=== PATIENT | male | born 1965 | race Caucasian/White ===

== ENCOUNTER 2023-11-08 14:37 | Inpatient (IN) | payer OTHER ==
[2023-11-08 16:07] VITALS: BMI 21.5
[2023-11-08] MEDS ORDERED: guaiFENesin 600 MG TABLET.ER (FP) PO PRN (18:44)
[2023-11-08] MEDS ORDERED: NALOXONE HCL (KLOXXADO) 8 MG SPRAY NS PRN (18:44)
[2023-11-08] MEDS ORDERED: LOPERAMIDE HCL 2 MG CAPSULE PO PRN (18:44)
[2023-11-08] MEDS ORDERED: NALOXONE HCL 0.4 MG/ML VIAL IM PRN (18:44)
[2023-11-08] MEDS ORDERED: MAG HYDROX/AL HYDROX/SIMETH 30 ML UNIT-DOSE CUP PO PRN (18:44)
[2023-11-08] MEDS ORDERED: BENZOCAINE/MENTHOL (CHLORASEPTIC ) LOZENGE MM PRN (18:44)
[2023-11-08] MEDS ORDERED: IBUPROFEN 400 MG TABLET (FP) PO PRN (18:44)
[2023-11-08] MEDS ORDERED: POLYETHYLENE GLYCOL (HEALTHYLAX) 3350 17 GM PACKET PO PRN (18:44)
[2023-11-08] MEDS ORDERED: BENZONATATE 200 MG CAPSULE PO PRN (18:44)
[2023-11-08] MEDS ORDERED: MAGNESIUM HYDROX 2400MG/30ML ORAL SUSPENSION 30 ML CUP PO PRN (18:44)
[2023-11-08] MEDS: MELATONIN 5 MG TABLETS PO SCH (22:25)
[2023-11-08] MEDS: THIAMINE HCL 100 MG TABLET (FP) PO SCH (22:25)
[2023-11-09] MEDS ORDERED: TUBERCULIN PPD 5 TU/0.1ML VIAL ID ONE ×2 (09:18→09:20)
[2023-11-09 10:16] LABS: CHLORIDE 107 mmol/L (98-107); POTASSIUM 4.8 mmol/L (3.5-5.1); SODIUM 142 mmol/L (136-145)
[2023-11-09 10:22] LABS: ALBUMIN 3.7 g/dl (3.4-5.0); ANION GAP 3 mmol/L (4-13); CO2 33 mmol/L (21-32); GLUCOSE,RANDOM 96 mg/dL (74-106)
[2023-11-09 10:23] LABS: CALCIUM 9.5 mg/dL (8.5-10.1)
[2023-11-09 10:25] LABS: CREATININE 0.9 mg/dL (0.55-1.3); SGOT/AST 14 U/L (15-37); SGPT/ALT 17 U/L (13-61)
[2023-11-09 10:26] LABS: TOT PROT 6.7 g/dl (6.4-8.2)
[2023-11-09 10:28] LABS: ALK PHOS 63 U/L (45-117)
[2023-11-09 10:29] LABS: EPI CELLS 4 /uL (0-25.1); HYALINE CASTS 1 /uL (0-3.1); PH,URINE 7.5 (5.0-8.0); URINE APPEARANCE CLEAR; URINE BACTERIA 22 /uL (0-1359); URINE BILIRUBIN NEGATIVE (NEGATIVE); URINE COLOR YELLOW; URINE GLUCOSE (UA) NEGATIVE (NEGATIVE); URINE KETONE NEGATIVE (NEGATIVE); URINE LEUK ESTERASE NEGATIVE (NEGATIVE); URINE NITRITE NEGATIVE (NEGATIVE); URINE PROTEIN NEGATIVE (NEGATIVE); URINE RBC 32 /uL (0-23.9); URINE UROBILINOGEN 0.2 mg/dL (0.2-1.0); URINE WBC 4 /uL (0-25.8)
[2023-11-09 10:30] LABS: HEMATOCRIT 44.5 % (35.4-49); HEMOGLOBIN 14.5 GM/dL (11.7-16.9); MCH 29.9 pg (25.7-33.7); MCHC 32.5 g/dl (32.0-35.9); MEAN PLT VOLUME 8.4 fl (7.5-11.1); PLATELET COUNT 296 10^3/uL (134-434); RBC 4.84 M/mm3 (4.00-5.60); RDW 13.4 % (11.9-15.9); WHITE BLOOD COUNT 6.5 K/mm3 (4.0-10.0)
[2023-11-09 10:40] LABS: BILIRUBIN,TOTAL 0.4 mg/dL (0.2-1)
[2023-11-09] MEDS: hydrOXYzine PAMOATE 25 MG CAPSULE (FP) PO PRN (10:49)
[2023-11-09] MEDS: PRENATAL VITAMINS W/ FOLIC ACID TABLET (FP) PO SCH (10:53)
[2023-11-09 12:21] LABS: SYPHILIS W/ RPR CONF NON-REACTIVE (NONREACTIVE)
[2023-11-09] MEDS: MELATONIN 5 MG TABLETS PO SCH (21:31)
[2023-11-09] MEDS: THIAMINE HCL 100 MG TABLET (FP) PO SCH (21:31)
[2023-11-10] MEDS: PRENATAL VITAMINS W/ FOLIC ACID TABLET (FP) PO SCH (10:43)
[2023-11-10] MEDS: ACETAMINOPHEN 325 MG TABLET (FP) PO PRN (17:34)
[2023-11-10] MEDS: MELATONIN 5 MG TABLETS PO SCH (21:11)
[2023-11-10] MEDS: THIAMINE HCL 100 MG TABLET (FP) PO SCH (21:11)
[2023-11-11] MEDS: PRENATAL VITAMINS W/ FOLIC ACID TABLET (FP) PO SCH (09:46)
[2023-11-11] MEDS: MELATONIN 5 MG TABLETS PO SCH (21:34)
[2023-11-11] MEDS: THIAMINE HCL 100 MG TABLET (FP) PO SCH (21:35)
[2023-11-12] MEDS: PRENATAL VITAMINS W/ FOLIC ACID TABLET (FP) PO SCH (10:12)
[2023-11-12] MEDS: THIAMINE HCL 100 MG TABLET (FP) PO SCH (21:19)
[2023-11-12] MEDS: MELATONIN 5 MG TABLETS PO SCH (21:19)
[2023-11-13] MEDS: PRENATAL VITAMINS W/ FOLIC ACID TABLET (FP) PO SCH (09:43)
[2023-11-13] MEDS: THIAMINE HCL 100 MG TABLET (FP) PO SCH (21:25)
[2023-11-13] MEDS: MELATONIN 5 MG TABLETS PO SCH (21:25)
[2023-11-14] MEDS: PRENATAL VITAMINS W/ FOLIC ACID TABLET (FP) PO SCH (09:57)
[2023-11-14] MEDS: MELATONIN 5 MG TABLETS PO SCH (21:24)
[2023-11-14] MEDS: THIAMINE HCL 100 MG TABLET (FP) PO SCH (21:24)
[2023-11-15] MEDS: ACETAMINOPHEN 325 MG TABLET (FP) PO PRN (06:09)
[2023-11-15] MEDS: COLLOIDAL OATMEAL 1 BAR EACH TP PRN (10:13)
[2023-11-15] MEDS: PRENATAL VITAMINS W/ FOLIC ACID TABLET (FP) PO SCH (10:13)
[2023-11-15] MEDS: GABAPENTIN 300 MG CAPSULE PO SCH ×2 (10:13→21:14)
[2023-11-15] MEDS: BACLOFEN 10 MG TABLET (FP) PO SCH ×2 (10:13→21:14)
[2023-11-15] MEDS: THIAMINE HCL 100 MG TABLET (FP) PO SCH (21:14)
[2023-11-15] MEDS: MELATONIN 5 MG TABLETS PO SCH (21:14)
[2023-11-16] MEDS: TAMSULOSIN HCL 0.4 MG CAP PO SCH (07:30)
[2023-11-16] MEDS: BACLOFEN 10 MG TABLET (FP) PO SCH ×2 (10:04→21:29)
[2023-11-16] MEDS: PRENATAL VITAMINS W/ FOLIC ACID TABLET (FP) PO SCH (10:04)
[2023-11-16] MEDS: GABAPENTIN 300 MG CAPSULE PO SCH ×2 (10:04→21:29)
[2023-11-16 11:29] LABS: MAGNESIUM 2.4 mg/dL (1.8-2.4)
[2023-11-16] MEDS: MELATONIN 5 MG TABLETS PO SCH (21:29)
[2023-11-16] MEDS: THIAMINE HCL 100 MG TABLET (FP) PO SCH (21:30)
[2023-11-16] MEDS: ACETAMINOPHEN 325 MG TABLET (FP) PO PRN (21:30)
[2023-11-17] MEDS: IBUPROFEN 600 MG TABLET (FP) PO PRN (06:35)
[2023-11-17] MEDS: hydrOXYzine PAMOATE 25 MG CAPSULE (FP) PO PRN (06:35)
[2023-11-17] MEDS: BACLOFEN 10 MG TABLET (FP) PO SCH ×2 (10:21→21:10)
[2023-11-17] MEDS: GABAPENTIN 300 MG CAPSULE PO SCH ×2 (10:21→21:11)
[2023-11-17] MEDS: TAMSULOSIN HCL 0.4 MG CAP PO SCH (10:22)
[2023-11-17] MEDS: PRENATAL VITAMINS W/ FOLIC ACID TABLET (FP) PO SCH (10:31)
[2023-11-17] MEDS: MELATONIN 5 MG TABLETS PO SCH (21:10)
[2023-11-17] MEDS: THIAMINE HCL 100 MG TABLET (FP) PO SCH (21:10)
[2023-11-17] MEDS ORDERED: GABAPENTIN 300 MG CAPSULE PO SCH (22:00)
[2023-11-18] MEDS: hydrOXYzine PAMOATE 25 MG CAPSULE (FP) PO PRN (06:30)
[2023-11-18] MEDS: GABAPENTIN 300 MG CAPSULE PO SCH ×3 (06:30→21:04)
[2023-11-18] MEDS: IBUPROFEN 600 MG TABLET (FP) PO PRN ×2 (06:30→21:04)
[2023-11-18] MEDS: TAMSULOSIN HCL 0.4 MG CAP PO SCH (09:20)
[2023-11-18] MEDS: BACLOFEN 10 MG TABLET (FP) PO SCH ×2 (10:02→21:04)
[2023-11-18] MEDS: PRENATAL VITAMINS W/ FOLIC ACID TABLET (FP) PO SCH (10:02)
[2023-11-18] MEDS: COLLOIDAL OATMEAL 1 BAR EACH TP PRN (10:02)
[2023-11-18] MEDS: ACETAMINOPHEN 325 MG TABLET (FP) PO PRN (10:03)
[2023-11-18] MEDS: THIAMINE HCL 100 MG TABLET (FP) PO SCH (21:04)
[2023-11-18] MEDS: MELATONIN 5 MG TABLETS PO SCH (21:04)
[2023-11-19] MEDS: GABAPENTIN 300 MG CAPSULE PO SCH ×3 (06:07→21:29)
[2023-11-19] MEDS: ACETAMINOPHEN 325 MG TABLET (FP) PO PRN (06:08)
[2023-11-19] MEDS: PRENATAL VITAMINS W/ FOLIC ACID TABLET (FP) PO SCH (09:22)
[2023-11-19] MEDS: TAMSULOSIN HCL 0.4 MG CAP PO SCH (09:22)
[2023-11-19] MEDS: BACLOFEN 10 MG TABLET (FP) PO SCH ×2 (10:10→21:27)
[2023-11-19] MEDS: MELATONIN 5 MG TABLETS PO SCH (21:27)
[2023-11-19] MEDS: THIAMINE HCL 100 MG TABLET (FP) PO SCH (21:27)
[2023-11-20] MEDS: GABAPENTIN 300 MG CAPSULE PO SCH ×3 (06:16→21:11)
[2023-11-20] MEDS: TAMSULOSIN HCL 0.4 MG CAP PO SCH (08:18)
[2023-11-20] MEDS: PRENATAL VITAMINS W/ FOLIC ACID TABLET (FP) PO SCH (10:29)
[2023-11-20] MEDS: BACLOFEN 10 MG TABLET (FP) PO SCH ×2 (10:29→21:11)
[2023-11-20] MEDS: ACETAMINOPHEN 325 MG TABLET (FP) PO PRN (10:29)
[2023-11-20] MEDS: THIAMINE HCL 100 MG TABLET (FP) PO SCH (21:11)
[2023-11-20] MEDS: MELATONIN 5 MG TABLETS PO SCH (21:11)
[2023-11-20] MEDS: IBUPROFEN 600 MG TABLET (FP) PO PRN (21:11)
[2023-11-21] MEDS: GABAPENTIN 300 MG CAPSULE PO SCH ×3 (06:14→21:16)
[2023-11-21] MEDS: ACETAMINOPHEN 325 MG TABLET (FP) PO PRN (06:15)
[2023-11-21] MEDS: TAMSULOSIN HCL 0.4 MG CAP PO SCH (07:39)
[2023-11-21] MEDS: BACLOFEN 10 MG TABLET (FP) PO SCH ×3 (10:23→21:15)
[2023-11-21] MEDS: PRENATAL VITAMINS W/ FOLIC ACID TABLET (FP) PO SCH (10:23)
[2023-11-21] MEDS: IBUPROFEN 600 MG TABLET (FP) PO PRN ×2 (10:24→21:16)
[2023-11-21] MEDS ORDERED: GABAPENTIN 300 MG CAPSULE PO SCH (13:29)
[2023-11-21] MEDS: THIAMINE HCL 100 MG TABLET (FP) PO SCH (21:15)
[2023-11-21] MEDS: MELATONIN 5 MG TABLETS PO SCH (21:16)
[2023-11-22] MEDS: GABAPENTIN 300 MG CAPSULE PO SCH ×3 (06:02→21:17)
[2023-11-22] MEDS: BACLOFEN 10 MG TABLET (FP) PO SCH ×3 (06:02→21:17)
[2023-11-22] MEDS: TAMSULOSIN HCL 0.4 MG CAP PO SCH (07:49)
[2023-11-22] MEDS: PRENATAL VITAMINS W/ FOLIC ACID TABLET (FP) PO SCH (10:41)
[2023-11-22] MEDS: IBUPROFEN 600 MG TABLET (FP) PO PRN ×2 (10:42→21:19)
[2023-11-22] MEDS: THIAMINE HCL 100 MG TABLET (FP) PO SCH (21:17)
[2023-11-22] MEDS: MELATONIN 5 MG TABLETS PO SCH (21:17)
[2023-11-23] MEDS: GABAPENTIN 300 MG CAPSULE PO SCH ×3 (06:05→21:22)
[2023-11-23] MEDS: BACLOFEN 10 MG TABLET (FP) PO SCH ×3 (06:05→21:22)
[2023-11-23] MEDS: TAMSULOSIN HCL 0.4 MG CAP PO SCH (07:53)
[2023-11-23] MEDS: PRENATAL VITAMINS W/ FOLIC ACID TABLET (FP) PO SCH (10:24)
[2023-11-23] MEDS: hydrOXYzine PAMOATE 25 MG CAPSULE (FP) PO PRN ×2 (10:24→21:24)
[2023-11-23] MEDS: THIAMINE HCL 100 MG TABLET (FP) PO SCH (21:21)
[2023-11-23] MEDS: MELATONIN 5 MG TABLETS PO SCH (21:21)
[2023-11-23] MEDS ORDERED: SUVOREXANT 10 MG TABLET PO PRN (22:00)
[2023-11-24] MEDS: BACLOFEN 10 MG TABLET (FP) PO SCH ×3 (06:09→21:22)
[2023-11-24] MEDS: GABAPENTIN 300 MG CAPSULE PO SCH ×3 (06:09→21:22)
[2023-11-24] MEDS: PRENATAL VITAMINS W/ FOLIC ACID TABLET (FP) PO SCH (10:26)
[2023-11-24] MEDS: TAMSULOSIN HCL 0.4 MG CAP PO SCH (10:26)
[2023-11-24] MEDS: IBUPROFEN 600 MG TABLET (FP) PO PRN (10:33)
[2023-11-24] MEDS: MELATONIN 5 MG TABLETS PO SCH (21:22)
[2023-11-24] MEDS: THIAMINE HCL 100 MG TABLET (FP) PO SCH (21:22)
[2023-11-25] MEDS: GABAPENTIN 300 MG CAPSULE PO SCH ×3 (06:12→21:10)
[2023-11-25] MEDS: BACLOFEN 10 MG TABLET (FP) PO SCH ×3 (06:13→21:10)
[2023-11-25] MEDS: TAMSULOSIN HCL 0.4 MG CAP PO SCH (08:53)
[2023-11-25] MEDS: PRENATAL VITAMINS W/ FOLIC ACID TABLET (FP) PO SCH (09:02)
[2023-11-25] MEDS: THIAMINE HCL 100 MG TABLET (FP) PO SCH (21:10)
[2023-11-25] MEDS: MELATONIN 5 MG TABLETS PO SCH (21:10)
[2023-11-26] MEDS: BACLOFEN 10 MG TABLET (FP) PO SCH ×3 (05:56→21:13)
[2023-11-26] MEDS: GABAPENTIN 300 MG CAPSULE PO SCH ×3 (05:56→21:14)
[2023-11-26] MEDS: TAMSULOSIN HCL 0.4 MG CAP PO SCH (07:34)
[2023-11-26] MEDS: PRENATAL VITAMINS W/ FOLIC ACID TABLET (FP) PO SCH (10:19)
[2023-11-26] MEDS: THIAMINE HCL 100 MG TABLET (FP) PO SCH (21:13)
[2023-11-26] MEDS: MELATONIN 5 MG TABLETS PO SCH (21:14)
[2023-11-26] MEDS ORDERED: SUVOREXANT 10 MG TABLET PO PRN (22:00)
[2023-11-27] MEDS: GABAPENTIN 300 MG CAPSULE PO SCH ×3 (06:47→21:17)
[2023-11-27] MEDS: BACLOFEN 10 MG TABLET (FP) PO SCH ×3 (06:47→21:17)
[2023-11-27] MEDS: TAMSULOSIN HCL 0.4 MG CAP PO SCH (09:56)
[2023-11-27] MEDS: PRENATAL VITAMINS W/ FOLIC ACID TABLET (FP) PO SCH (09:56)
[2023-11-27] MEDS: MELATONIN 5 MG TABLETS PO SCH (21:16)
[2023-11-27] MEDS: THIAMINE HCL 100 MG TABLET (FP) PO SCH (21:16)
[2023-11-28] MEDS: BACLOFEN 10 MG TABLET (FP) PO SCH ×3 (06:02→21:05)
[2023-11-28] MEDS: GABAPENTIN 300 MG CAPSULE PO SCH ×3 (06:02→21:06)
[2023-11-28 07:03] VITALS: TEMP 97.7
[2023-11-28] MEDS: PRENATAL VITAMINS W/ FOLIC ACID TABLET (FP) PO SCH (09:49)
[2023-11-28] MEDS: TAMSULOSIN HCL 0.4 MG CAP PO SCH (09:49)
[2023-11-28] MEDS: MELATONIN 5 MG TABLETS PO SCH (21:06)
[2023-11-28] MEDS: THIAMINE HCL 100 MG TABLET (FP) PO SCH (21:06)
[2023-11-28] MEDS: IBUPROFEN 600 MG TABLET (FP) PO PRN (23:56)
[2023-11-29] MEDS: GABAPENTIN 300 MG CAPSULE PO SCH ×2 (06:23→13:33)
[2023-11-29] MEDS: hydrOXYzine PAMOATE 25 MG CAPSULE (FP) PO PRN (06:23)
[2023-11-29] MEDS: BACLOFEN 10 MG TABLET (FP) PO SCH ×2 (06:23→13:33)
[2023-11-29 06:46] VITALS: BP 136/84; PULSE 60; RESP 16
[2023-11-29] MEDS: TAMSULOSIN HCL 0.4 MG CAP PO SCH (09:05)
[2023-11-29] MEDS: PRENATAL VITAMINS W/ FOLIC ACID TABLET (FP) PO SCH (09:05)
[2023-11-29] MEDS ORDERED: SUVOREXANT 10 MG TABLET PO PRN (22:00)
== END 2023-11-29 13:35 | disposition home or self-care (01) | DRG 774 ==
LOC: YASAS 14:37 → Y3W 21:51
PROVIDERS: ADMIT Allergy & Immunology; ATTEND Psychiatry & Neurology Pain Medicine
PROC: HZ42ZZZ Group Counseling for Substance Abuse Treatment, Cognitive-Behavioral (ICD-10-PCS; principal; 2023-11-08)
DX: F14.90 Cocaine use, unspecified, uncomplicated (principal); F12.10 Cannabis abuse, uncomplicated; F17.210 Nicotine dependence, cigarettes, uncomplicated; F41.9 Anxiety disorder, unspecified; F32.A Depression, unspecified; R35.0 Frequency of micturition; M51.26 Other intervertebral disc displacement, lumbar region; Z56.0 Unemployment, unspecified; Z59.00 Homelessness unspecified; Z86.59 Personal history of other mental and behavioral disorders
CPT/HCPCS: 36415; 80053; 80061; 80307; 81003; 82652; 83036; 83735; 84153; 85027; 86780; 86803; 87522; 87635; J0475